=== PATIENT | female | born 1980 | race Caucasian/White ===

== ENCOUNTER 2024-04-19 21:00 | Emergency (ER) | payer OTHER, BC ==
[~2024-04-19] VITALS: Ht 157.5 cm; Wt 70.5 kg
[2024-04-19] MEDS ORDERED: Ketorolac 30 MG/ML VIAL IV ONE (21:45)
[2024-04-19] MEDS ORDERED: NS 500 ML IV SCH (21:45)
[2024-04-19] MEDS ORDERED: diphenhydrAMINE 50 MG/ML 1 ML VIAL IV ONE (21:45)
[2024-04-19 21:56] LABS: BASO # 0.02 K/mm3 (0.02-0.10); EOS # 0.07 K/mm3 (0.04-0.40); HEMATOCRIT 38.4 % (37.0-47.0); HEMOGLOBIN 14.3 g/dL (12.5-16.0); LYMPH# 1.56 K/mm3 (1.50-4.00); MEAN CELL VOLUME 90 fl (78-100); MEAN CORPUSCULAR HEMOGLOBIN 33 pg (27-31); MEAN CORPUSCULAR HGB CONC 37 g/dL (33-37); MONO # 0.32 K/mm3 (0.20-0.80); NEU # 4.77 K/mm3 (1.40-6.50); PLATELET COUNT 213 K/mm3 (130-400); RED BLOOD COUNT 4.28 M/mm3 (4.10-5.30); RED CELL DISTRIBUTION WIDTH 11.9 % (11.5-14.5); WHITE BLOOD COUNT 6.8 K/mm3 (4.8-10.8)
[2024-04-19 21:59] LABS: ALBUMIN 3.9 g/dL (3.5-5.0)
[2024-04-19 22:00] LABS: CALCIUM 9.7 mg/dL (8.3-10.5)
[2024-04-19 22:01] LABS: TOTAL PROTEIN 5.8 g/dL (6.4-8.3)
[2024-04-19 22:03] LABS: TOTAL BILIRUBIN 0.2 mg/dL (0.2-1.2)
[2024-04-19 23:11] VITALS: BP 126/74
== END 2024-04-19 23:11 | disposition home or self-care (01) ==
LOC: ED 21:00
PROVIDERS: Nurse Practitioner Family
DX: G43.909 Migraine, unspecified, not intractable, without status migrainosus (principal)
CPT/HCPCS: J0780; J1200; J1885; J7040